=== PATIENT | female | born 1950 | race Caucasian/White ===

== ENCOUNTER → 2018-09-09 13:38 | Outpatient (CLI) | payer MEDICARE, BC ==
[2009-09-28 08:18] VITALS: BMI 23.0
--- NOTE | ~2018-09-09 | EC ---
PATIENT:SOLOMON MERINO DATE OF SERVICE: 09/09/18 SEX: F MEDICAL RECORD: [id number] DATE OF : 46 [facility] AGE OF PATIENT: 68 ADMISSION DATE: 09/09/18 REFERRING PHYSICIAN: INTERPRETING PHYSICIAN: PERCY TORIBIO MD ECHOCARDIOGRAM REPORT ECHO CHARGES 4 ECHO COMPLETE Date: 09/09/18 CLINICAL DIAGNOSIS: CAD ECHOCARDIOGRAPHIC MEASUREMENTS (adult normal given) AC root (d.<3.7cm) 2.8 cm LV Septum d (<1.2 cm> 1.3 cm Valve Excursion 1.0 cm LV Septum (systole) 1.5 cm Left Atria (s.<4.0cm> 3.5 cm LVPW d(<1.2cm) 1.4 cm RV (d.<2.3cm) 3.2 cm LVPW (sytole) 1.5 cm LV diastole(<5.6CM) 4.8 cm MV E-F(>70mm/sec) cm LV systole 2.7 cm LVOT Diameter 1.5 cm MV exc.(>10mm) 1.6 cm Est.ejection fraction (50-75%) % DOPPLER: LVIT cm/sec A 75.0 cm/sec E 94.0 cm/sec LA cm/sec RVSP 33 mmHg LVOT 97 cm/sec AOP1/2T 1 m/s Asc. Ao 196 cm/sec RVOT 78 cm/sec RA cm/sec PA 115 cm/sec AV Gradient Peak 15.34mmHg AV Mean 7.50 mmHg AV Area 1.7 cm MV Gradient Peak 6.77 mmHg MV Mean 1.94 mmHg MV Area cm COMMENTS: Stock Dealer: Naman NOEL Industrial Electrician Journeyman: 1 Dr. Toribio TAPE# PACS Pericardial Effusion N DATE OF SERVICE: 09/09/2018 PROCEDURE: Echocardiogram. FINDINGS: 1. Left ventricular chamber size is within normal limits. Left ventricular systolic function is normal. Overall ejection fraction estimated at 60%. 2. Left atrium, right atrium and right ventricular chamber sizes are within normal limits. 3. Valvular structures have normal structure and motion. ECHOCARDIOGRAM REPORT [id number] SOLOMON MERINO 4. Doppler interrogation reveals mild mitral regurgitation, mild tricuspid regurgitation, no other valvular insufficiency or stenosis. Pulmonary systolic pressure is normal estimated 33 mmHg. 5. No evidence of pericardial effusion or left ventricular thrombus. TRANSINT:[id number] Voice Confirmation ID: [id number] DOCUMENT ID: [id number] PERCY TORIBIO MD CC: [id number] DICTATION DATE: 09/10/18 1109 SERVICE COUNTER CASHIER: 09/10/18 1204 DEP CLI 09/09/18 [facility] [address] [id number]
== END | disposition home or self-care (01) ==
LOC: D.HCCARDIO 13:00
PROVIDERS: ATTEND Internal Medicine Interventional Cardiology
DX: I25.10 Atherosclerotic heart disease of native coronary artery without angina pectoris (principal)

== ENCOUNTER → 2018-09-20 14:14 | Outpatient (CLI) | payer MEDICARE, BC ==
[2009-09-28 08:18] VITALS: BMI 23.0
== END | disposition home or self-care (01) ==
LOC: D.CT 14:14
PROVIDERS: ATTEND Internal Medicine Interventional Cardiology
DX: I70.213 Atherosclerosis of native arteries of extremities with intermittent claudication, bilateral legs (principal); I73.9 Peripheral vascular disease, unspecified

== ENCOUNTER → 2020-08-26 09:13 | Outpatient (CLI) | payer MEDICARE ==
[2009-09-28 08:18] VITALS: BMI 23.0
== END | disposition home or self-care (01) ==
LOC: D.CT 09:13
PROVIDERS: ATTEND Radiology Diagnostic Radiology
DX: I70.202 Unspecified atherosclerosis of native arteries of extremities, left leg (principal)

== ENCOUNTER 2020-08-31 11:35 | Day surgery (SDC) | payer MEDICARE ==
--- NOTE | 2020-08-30 15:16 | NUR ---
APPOINTMENT CONFIRMED
[~2020-08-31] VITALS: Ht 160 cm; Wt 68.2 kg
--- NOTE | ~2020-08-31 | HEMODYNAMI ---
PATIENT:SOLOMON MERINO MEDICAL RECORD: [id number] : 46 LOCATION:[facility] ADMISSION DATE: 08/31/20 Generatedon:115:16 Patient name: SOLOMON MERINO Patient #: [id number] SSN: : 1950 Date of study: 08/31/2020 Page: Of Hemodynamic Procedure Report Patient Data Patient Demographics Procedure consent was obtained First Name: SOLOMON Gender: Female Last Name: WILBER : 1950 Patient #: [id number] Age: 70 year(s) Race: Unknown Additional ID: [id number] Contact details [address]: [address] [place] [address] [place] State: [place] City: [place] Zip code: [address] Past Medical History Allergies Allergen Reaction Date Comments Reported Codeine 08/31/2020 Bactrim 08/31/2020 Admission Admission Data Admission Date: 08/31/2020 Admission Time: 11:35 Procedure Procedure Types Cath Procedure Peripheral Cath Diagnostic Procedure Building Rental Manager Peripheral Procedures Abd/Extremity Extremities Bilat Lower Extremity Procedure Description Procedure Date Procedure Date: 08/31/2020 Procedure Start Time: 13:39 Procedure Staff Name Function Chucky Bellamy MD Performing Physician hSanta Devine RT Running Specialist Gretchen Marie RN Nurse Rickie Ann RT Scrub Procedure Data Cath Procedure Fluoroscopy Diagnostic fluoroscopy Total fluoroscopy Time: 8.3 time: 8.3 min min Diagnostic fluoroscopy Total fluoroscopy dose: dose: 1977 mGy 1977 mGy Contrast Material Contrast Material Type Amount (ml) Isovue 300 115 Diagnostic catheters Device Type Used For End Catheter Placement Merit ULTRA BOLUS FLUSH 5Fr 65CM catheter ([id number]) Angiodynamics SOS OMNI 2 NON B 5FR 65CM catheter ([id number]) Procedure Medications Medication Administration Route Dosage Heparin Flush Bag added to field 3 bags (1000units/500ml NS) Lidocaine 1% added to field 20 Fentanyl I.V. 50 mcg Versed I.V. 1 mg Heparin Bolus I.V. 4000 units Hemodynamics Rest Heart Rate: 58 (bpm) Pressure Samples Time Site Value (mmHg) Purpose Heart Use Rate(bpm) 14:13 AO 153/44(81) Snapshot 51 14:14 AO 119/44(72) Snapshot 50 14:14 AO 110/41(68) Snapshot 51 14:34 AO 142/42(77) Snapshot 50 14:35 AO 130/44(74) Snapshot 50 Snapshots Pre Cath Intra NCS Post Cath Vital Signs Time Heart Resp SPO2 etCO2 NIBP (mmHg) Rhythm Pain Sedation Rate (ipm) (%) (mmHg) Status Level (bpm) 13:15:30 80 11 95 33.8 163/68(118) NSR 0 (11) 10(A) , No pain 13:20:01 55 17 95 30.8 162/65(129) NSR 0 (11) 10(A) , No pain 13:25:00 58 21 92 47.4 Measuring NSR 0 (11) 10(A) , No pain 13:25:28 58 11 94 21 159/45(62) NSR 0 (11) 10(A) , No pain 13:29:59 54 14 95 39.9 165/56(124) NSR 0 (11) 10(A) , No pain 13:34:21 55 10 98 39.1 160/82(146) NSR 0 (11) 10(A) , No pain 13:38:47 57 16 98 32.4 156/74(116) NSR 0 (11) 10(A) , No pain 13:43:11 55 17 99 39.8 166/67(123) NSR 0 (11) 8(A) , No pain 13:47:40 52 13 99 36.9 143/59(107) NSR 0 (11) 8(A) , No pain 13:52:02 55 18 100 40.6 133/56(104) NSR 0 (11) 8(A) , No pain 13:57:01 50 26 99 41.4 Measuring NSR 0 (11) 8(A) , No pain 13:57:07 51 24 99 41.4 145/70(122) NSR 0 (11) 8(A) , No pain 14:01:27 50 25 99 42.1 143/59(109) NSR 0 (11) 8(A) , No pain 14:05:51 49 14 99 39.1 148/53(93) NSR 0 (11) 8(A) , No pain 14:10:15 51 15 100 39.8 138/58(108) NSR 0 (11) 8(A) , No pain 14:15:14 50 14 100 41.4 Measuring NSR 0 (11) 8(A) , No pain 14:15:25 50 14 100 42.1 147/59(112) NSR 0 (11) 8(A) , No pain 14:20:24 49 27 100 39.8 Measuring NSR 0 (11) 8(A) , No pain 14:20:38 49 24 100 39.8 148/58(112) NSR 0 (11) 8(A) , No pain 14:25:37 49 56 100 38.3 Measuring NSR 0 (11) 8(A) , No pain 14:26:06 50 27 100 40.6 145/58(102) NSR 0 (11) 8(A) , No pain 14:31:05 51 25 100 41.3 Measuring NSR 0 (11) 8(A) , No pain 14:31:17 50 18 100 40.6 144/59(109) NSR 0 (11) 8(A) , No pain 14:35:37 49 15 100 39.8 139/64(102) NSR 0 (11) 8(A) , No pain 14:40:01 50 16 100 36 131/49(99) NSR 0 (11) 8(A) , No pain 14:45:01 53 16 100 42.1 Measuring NSR 0 (11) 8(A) , No pain 14:45:25 49 15 100 41.3 127/54(103) NSR 0 (11) 8(A) , No pain 14:50:24 53 15 100 44.4 Measuring NSR 0 (11) 8(A) , No pain 14:50:40 53 16 100 40.6 156/68(120) NSR 0 (11) 8(A) , No pain 14:55:40 56 11 98 40.6 Measuring NSR 0 (11) 8(A) , No pain 14:55:46 58 11 98 44.4 153/67(116) NSR 0 (11) 8(A) , No pain 15:00:14 55 10 12.8 144/59(119) NSR 0 (11) 8(A) , No pain 15:04:14 No Cuff NSR 0 (11) 8(A) , No pain 15:08:13 0 No Cuff NSR 0 (11) 8(A) , No pain 15:12:13 0 No Cuff NSR 0 (11) 8(A) , No pain 15:16:13 0 No Cuff NSR 0 (11) 8(A) , No pain Medications Time Medication Route Dose Verified Delivered Reason Notes Effec tiveness by by 13:29:18 Heparin Flush added 3 Chucky Locke used for Bag to bags Josesito Bellamy procedure (1000units/500ml field MD VICENTE NS) 13:29:33 Lidocaine 1% added 20ml Chucky Locke used for to vial Josesito Bellamy procedure field MD VICENTE 13:41:13 Fentanyl I.V. 50 Chucky Godinez for mcg Josesito Marie sedation RN 13:41:25 Versed I.V. 1 mg Chucky Godinez for Josesito Marie sedation MD SOTO 13:47:44 Heparin Bolus I.V. 4000 Chucky Godinez used for units Josesito leone MD financial report service sales agent Log Time Note 12:46:07 Use device set IR Diagnostic 12:46:59 ACIST Syringe (69576) opened to sterile field. 12:47:00 ACIST Hand Control (71777) opened to sterile field. 12:47:03 ACIST Manifold (92455) opened to sterile field. 12:47:03 Bag Decanter (2002S) opened to sterile field. 12:47:04 Sterile Angiographic Pack opened to sterile field. 12:47:05 Tegaderm 4 x 4 (1626W) opened to sterile field. 12:47:06 Micropuncture VSI 4FR kit opened to sterile field. 12:47:07 BENTSON 145cm wire (P27800) opened to sterile field. 12:47:09 SHEATH 5FR [place] ([id number]) opened to sterile field. 12:47:10 TUBING Contrast Injection High Pressure (BWN025S) opened to sterile field. 12:47:12 DRUMMOND 260 wire (N75079) opened to sterile field. 12:47:26 - 13:07:58 Time tracking: Regular hours (M-F 7:00 - 5:00) 13:08:39 Plan of Care:Hemodynamics will remain stable., Cardiac rhythm will remain stable., Comfort level will be maintained., Respiratory function will remain adequate., Patient/ family verbilizes understanding of procedure., Procedure tolerated without complication., Recovers from procedure without complications.. 13:08:45 Patient received from Outpatients to IR Alert and oriented. Tansferred to table in Supine position. 13:08:51 Signed procedure consent form obtained from patient. 13:09:01 H&P Date Dictated: 08/31/2020 Within 30 days and on chart., H&P Addendum completed by physician on day of procedure. (MUST COMPLETE FOR ALL OUTPATIENTS). 13:09:03 Pre-procedure instructions explained to patient. 13:09:04 Pre-op teaching completed and patient verbalized understanding. 13:09:06 Family in waiting room. 13:09:12 Patient NPO since Midnight. 13:09:46 Patient allergic to Codeine 13:09:53 Patient allergic to Bactrim 13:11:50 Patient diabetic? No. 13:11:53 ----Pre-sedation anethsthesia assessment.---- 13:11:56 Previous problem with sedation/anesthesia? No ? 13:11:59 Snore? Yes 13:12:05 Sleep apnea? No 13:12:09 Deviated septum? No 13:12:12 Opens mouth fully? Yes 13:12:15 Sticks out tongue? Yes 13:12:37 Airway obstruction? Yes mitral valve regugitation 13:12:42 Dentures? No ? 13:13:33 Left groin area was prepped with chlora-prep and draped in sterile fashion 13:13:36 Alarms reviewed by Kavita Torres 13:14:04 Vital chart was started 13:16:52 ECG and BP/O2 sat monitors applied to patient. 13:16:53 Baseline sample Acquired. 13:16:54 Full Disclosure recording started 13:16:55 - 13:18:41 Pre procedure: left dorsailis pedis pulse 1+ Palpable, but thready & weak; easily obliterated 13:18:52 Pre procedure: left posterior tibial pulse Doppler 13:19:26 Pre procedure: right dorsailis pedis pulse 1+ Palpable, but thready & weak; easily obliterated 13:19:33 Pre procedure: right posterior tibial pulse Doppler 13:29:18 Heparin Flush Bag (1000units/500ml NS) 3 bags added to field was administered by Chucky Bellamy MD; used for procedure; Verbal order read back and verified. 13:29:33 Lidocaine 1% 20ml vial added to field was administered by Chucky reveles MD; used for procedure; Verbal order read back and verified. 13:38:50 Physician arrived 13:38:51 --------ALL STOP TIME OUT------ 13:38:52 Final Timeout: patient, procedure, and site verified with staff and physician. All members of the team are in agreement. 13:39:20 2) 60-89 Mildly reduced kidney function, and other findings (as for stage 1) point to kidney disease. 13:39:25 Fire Safety Assessment: A--An alcohol-based skin anteseptic being used preoperatively., C--Open oxygen or nitrous oxide is being used. 13:39:31 Procedure started. 13:39:36 Local anesthetic to left femerol artery with Lidocaine 1% by Chucky Bellamy MD.INITIAL ACCESS ONLY 13:39:42 Arterial access obtained using ultrasound guidance. 13:41:13 Fentanyl 50 mcg I.V. was administered by Gretchen Marie RN; for sedation; Verbal order read back and verified. 13:41:25 Versed 1 mg I.V. was administered by Gretchen Marie RN; for sedation; Verbal order read back and verified. 13:46:59 A [employer] ULTRA BOLUS FLUSH 5Fr 65CM catheter ([id number]) was advanced over the wire and used for . 13:47:44 Heparin Bolus 4000 units I.V. was administered by Gretchen Marie RN; used for procedure; Verbal order read back and verified. 13:56:45 Place stent Inflation Number: 1 A HERCULINK ELITE 6 X 15 X 80 stent ([id number]) was prepped and advanced across the Undefined1 . The stent was deployed at 0 ARMAAN for 0:00 (min:sec) . 13:57:31 A [facility] OMNI 2 NON B 5FR 65CM catheter ([id number]) was advanced over the wire and used for . 13:57:33 CHOICE PT Extra Support J 300cm guide wire ([id number]) opened to steril e field. 13:57:34 INFLATOR BasixTOUCH (KR4518) opened to sterile field. 14:13:27 Zero performed for pressure channel P1 14:21:13 Inflate balloon Inflation number: 1 A SHOCKWAVE BALLOON 6 X 60 ([id number]) was prepped and advanced across the Undefined2 , then inflated to 0 ARMAAN for 0:00 (min:sec) . 14:42:23 Place stent Inflation Number: 1 A Visipro 7 x 27 x 135 Stent ([id number]) was prepped and advanced across the Undefined3 . The stent was deployed at 0 ARMAAN for 0:00 (min:sec) . 14:52:19 Procedure ended.(Physican Out) 14:52:46 Fluoroscopy time 08.30 minutes. 14:52:52 Fluoroscopy dose: 1976 mGy 14:52:52 Flurop Dose total: 1976 14:53:15 Contrast amount:Isovue 300 115ml. 14:53:19 Procedure and supply charges have been captured, reviewed, submitted an d are correct. 15:16:28 Report given to Outpatients. 15:16:50 Vital chart was stopped Intervention Summary Intervention Notes Time ActionType Lesion and Equipment Used Action# Pressure Duration Attributes 13:56:45 Place stent Undefined1 HERCULINK ELITE 6 1 0 00:00 X 15 X 80 stent ([id number]) 14:21:13 Inflate Undefined2 SHOCKWAVE BALLOON 1 0 00:00 balloon 6 X 60 ([id number]) 14:42:23 Place stent Undefined3 Visipro 7 x 27 x 1 0 00:00 135 Stent ([id number]) Device Usage Item Name Manufacture Quantity Catalog Number Hospital Part Cur rent Minimal Lot# / Charge Number Stock Stock Serial# Code ACIST Syringe Acist Medical 1 56395 488885 [id number] 984 633 20 (20714) Systems Inc ACIST Hand [employer]ist Medical 1 43703 097697 160905 985 065 5 Control (97931) Systems Inc ACIST Manifold [employer]ist Medical 1 95854 039626 122891 985 080 5 (58343) Systems Inc Bag Decanter Microtek 1 2002S 199699 46436 982 776 5 (2001S) Medical Inc. Sterile Cardinal 1 [id number] 859290 997 491 5 Angiographic Pack Health Tegaderm 4 x 4 3M 1 1626W 734810 228812 988 846 5 (1626W) Micropuncture VSI VSI VASCULAR 1 7266V 484627 999 036 5 4FR kit SOLUTIONS BENTSON 145cm [employer] 1 D84945 939409 999 483 5 wire (L40431) SHEATH 5FR [employer] 1 HPD445 612179 755984 992 991 5 [place] (OQK787) TUBING Contrast [facility] 1 [id number] 509099 846541 999 226 5 Injection High Pressure ([id number]) DRUMMOND 260 wire [facility] 1 R02606 886888 232961 999 289 5 (H58983) Merit ULTRA BOLUS [facility] 1 [id number] 012741 999 749 5 FLUSH 5Fr 65CM catheter ([id number]) HERCULINK ELITE 6 [place] 1 [id number] 289434 999 996 5 [id number] X 15 X 80 stent Vascular ([id number]) Angiodynamics SOS Angiodynamics 1 [id number] 882590 83193 999 881 5 OMNI 2 NON B 5FR 65CM catheter ([id number]) CHOICE PT Extra [place] 1 [id number] 998 668 5 Support J 300cm Scientific guide wire ([id number]) INFLATOR [employer] Medical 1 LK1239 792901 796458 999 495 5 BasixTOUCH (FU1584) SHOCKWAVE BALLOON SHOCKWAVE 1 [id number] 591231 6649153 999 988 1 [id number] 6 X 60 MEDICAL ([id number]) Visipro 7 x 27 x Medtronic 1 [id number] 211865 019257 999 993 5 [id number] Stent ([id number]) Signature Audit [place] Stage Time Signature Unsigned Intra-Procedure 08/31/2020 Shanta Devine 3:16:46 PM RT(R) [id number] [place] [address]
[2020-08-31 11:55] LABS: BASOPHILS 0.3 % (0-2); EOSINOPHILS 0.7 % (0-7); HEMATOCRIT 39.1 % (36.0-48.0); HEMOGLOBIN 12.9 g/dL (12-16); IMMATURE GRANULOCYTES 0.1 % (0-5); LYMPHOCYTE ABS# 1.71 10x3/uL (1.18-3.74); LYMPHOCYTES 17.7 % (15-50); MCH 29.1 pg (26.0-34.0); MCV 88.1 fL (80.0-100.0); NEUTROPHIL ABS# 7.27 10x3/uL (1.56-6.13); NEUTROPHILS 75.2 % (40-80); PLATELET COUNT 353 10x3/uL (130-400); RBC 4.44 10x6/uL (4.00-5.40); RDW 13.9 % (11.5-14.5); WBC 9.7 10x3/uL (4.8-10.8)
[2020-08-31 11:58] LABS: CALC OSMOLALITY 276 mosm/kg (275-300); CALCIUM 9.8 mg/dL (8.5-10.1); CARBON DIOXIDE 32.9 mmol/L (21.0-32.0); CHLORIDE - SERUM 98 mmol/L (98-107); CREATININE - SERUM 0.7 mg/dL (0.6-1.3); GLUCOSE 124 mg/dL (74-106); POTASSIUM - SERUM 3.8 mmol/L (3.5-5.1); SODIUM 138 mmol/L (136-145); UREA NITROGEN 12 mg/dL (7-18); eGFR NON AFRICAN AMERICAN 87 mL/min (90-120)
[2020-08-31 12:01] LABS: APTT 29.8 SECONDS (22.8-39.4); INR 1.01 (0.85-1.17); PROTIME 12.3 SECONDS (11.6-15.0)
[2020-08-31] MEDS ORDERED: ESTRACE 0.5 MG0.5 MG PO (12:24)
[2020-08-31] MEDS ORDERED: ARMOUR THYROID30 MG PO (12:24)
[2020-08-31] MEDS ORDERED: DILTIAZEM 24HR240 M4 PO (12:25)
[2020-08-31] MEDS ORDERED: EDARBYCLOR 40-1 EAC1 PO (12:25)
[2020-08-31] MEDS ORDERED: OMEPRAZOLE20 M1 PO (12:26)
[2020-08-31] MEDS ORDERED: FOLIC ACID1 MG PO (12:27)
[2020-08-31] MEDS ORDERED: ZANAFLEX2 M1 PO (12:27)
[2020-08-31] MEDS ORDERED: CITRUCEL500 MG (12:28)
[2020-08-31] MEDS ORDERED: MULTI-DAY VITAM1 TAB (12:29)
[2020-08-31] MEDS ORDERED: VITAMIN D21250 MC1 PO (12:29)
[2020-08-31] MEDS ORDERED: BAYER CHEWABLE81 MG PO (12:29)
[2020-08-31] MEDS ORDERED: VITAMIN C WIT1000 MG PO (12:30)
[2020-08-31] MEDS ORDERED: OS-CAL500 MG PO (12:31)
[2020-08-31 12:41] VITALS: BP 138/55; Ht 160 cm; Wt 68.2 kg
--- NOTE | 2020-08-31 16:27 | NUR ---
1530 - PATIENT GIVEN INSTRUCTIONS TO CRANE CHASER PLAVIX PRESCRIPTION FROM [facility] AND TO START TAKING 75 MG PO AT 6PM AT NIGHT. THE PATIENT WAS INSTRUCTED TO CONTINUE TO TAKE PROTONIX AT 6AM. PATIENT GIVEN FOLLOW UP DATE OF August AT 130PM. PATIENT AND DAUGHTER VERBALIZED UNDERSTANDING
--- NOTE | 2020-08-31 18:55 | NUR ---
DISCHARGE INSTRUCTIONS REVIEWED WITH PATIENT AND DAUGHTER. THEN PATIENT SITS ON SIDE OF BED AND STANDS AND AMBULATES TO BATHROOM. NO DIZZINESS OR WEAKNESS. PATIENT VOIDS LARGE AMOUNT IN TOILET. LEFT GROIN ASSESSMENT UNCHANGED, NO BLEEDING OR SWELLING. LEFT HAND PIV DC'D WITH TIP INTACT. PATIENT DRESSES IN PERSONAL CLOTHING. 1907 DISCHARGED HOME VIA WHEELCHAIR TO PRIVATE VEHICLE WITH DAUGHTER
--- NOTE | 2020-09-01 15:28 | NUR ---
FOR PT CASE FROM 08/31/20 ARTERIOGRAM: MISSED CHARTING 0.5MG VERSED IV AND 25MCG FENTANYL IV IN [facility]. MEDICATION WAS RECORDED ON IR MEDICATION PROCEDURE SHEET, JUST NOT IN [facility].
== END 2020-08-31 19:08 | disposition home or self-care (01) ==
LOC: D.SP 11:35 → D.RAD 13:00 → D.SP 19:08
PROVIDERS: General Practice; ATTEND Radiology Diagnostic Radiology
DX: R93.1 Abnormal findings on diagnostic imaging of heart and coronary circulation (principal); I70.1 Atherosclerosis of renal artery; I70.212 Atherosclerosis of native arteries of extremities with intermittent claudication, left leg
CPT/HCPCS: 37236; 36251; C9765

== ENCOUNTER → 2020-10-11 08:21 | Day surgery (SDC) | payer MEDICARE ==
[~2020-10-11] VITALS: Ht 160 cm; Wt 68.2 kg
--- NOTE | ~2020-10-11 | HEMODYNAMI ---
PATIENT:SOLOMON MERINO MEDICAL RECORD: [id number] : 46 LOCATION:[facility] ADMISSION DATE: 10/11/20 Generatedon:111:56 Patient name: SOLOMON MERINO Patient #: [id number] SSN: : 1950 Date of study: 10/11/2020 Page: Of Hemodynamic Procedure Report Patient Data Patient Demographics Procedure consent was obtained First Name: SOLOMON Gender: Female Last Name: WILBER : 1950 Patient #: [id number] Age: 70 year(s) Race: Unknown Additional ID: [id number] Contact details [address]: [address] [place] [address] [place] State: [place] City: [place] Zip code: [address] Past Medical History Allergies Allergen Reaction Date Comments Reported Codeine 08/31/2020 Bactrim 08/31/2020 Codeine 10/11/2020 Penicillins 10/11/2020 Sulfa drugs 10/11/2020 Bactrim 10/11/2020 Admission Admission Data Admission Date: 10/11/2020 Admission Time: 8:21 Procedure Procedure Types Cath Procedure Peripheral Cath Diagnostic Procedure Abd/Extremity Extremities Left Lower Ext Arterio Procedure Description Procedure Date Procedure Date: 10/11/2020 Procedure Start Time: 11:05 Procedure Staff Name Function Chucky Bellamy MD Performing Physician Shanta Devine RT Patient Scheduler Kena Ybarra RN Nurse Rickie Ann RT Scrub Procedure Data Cath Procedure Fluoroscopy Diagnostic fluoroscopy Total fluoroscopy Time: 0 time: 0 min min Diagnostic fluoroscopy Total fluoroscopy dose: 803 dose: 803 mGy mGy Contrast Material Contrast Material Type Amount (ml) Isovue 300 50 Procedure Medications Medication Administration Route Dosage Heparin Flush Bag added to field 2 bags (1000units/500ml NS) Lidocaine 1% added to field 20 Benadryl I.V. 50 mg Fentanyl I.V. 50 mcg Versed I.V. 1 mg Heparin Bolus I.V. 4000 units Fentanyl I.V. 50 mcg Versed I.V. 1 mg Fentanyl I.V. 100 mcg Hydralizine I.V. 10 mg Hemodynamics Rest Heart Rate: 62 (bpm) Snapshots Pre Cath Intra NCS Post Cath Vital Signs Time Heart Resp SPO2 etCO2 NIBP (mmHg) Rhythm Pain Sedation Rate (ipm) (%) (mmHg) Status Level (bpm) 10:43:41 60 18 100 41.1 169/70(122) NSR 0 (11) 10(A) , No pain 10:48:40 63 13 100 47.1 Auto NIBP NSR 0 (11) 10(A) off , No pain 10:53:39 59 12 94 49.3 Auto NIBP NSR 0 (11) 10(A) off , No pain 10:56:58 62 14 100 40.4 171/78(129) NSR 0 (11) 10(A) , No pain 11:01:57 60 12 100 42.6 Auto NIBP NSR 0 (11) 10(A) off , No pain 11:05:09 61 32 100 41.9 163/72(135) NSR 0 (11) 8(A) , No pain 11:06:21 60 13 100 43.3 Auto NIBP NSR 0 (11) 8(A) off , No pain 11:08:16 60 20 100 43.3 171/86(144) NSR 0 (11) 8(A) , No pain 11:11:00 60 12 100 45.5 206/87(160) NSR 0 (11) 8(A) , No pain 11:14:16 64 16 100 47.8 183/82(147) NSR 0 (11) 8(A) , No pain 11:19:15 61 11 100 47.1 Auto NIBP NSR 0 (11) 8(A) off , No pain 11:21:12 60 25 100 45.6 175/71(128) NSR 0 (11) 8(A) , No pain 11:26:11 56 29 100 41.1 Auto NIBP NSR 0 (11) 8(A) off , No pain 11:28:22 59 20 100 45.6 178/74(134) NSR 0 (11) 8(A) , No pain 11:33:21 63 13 100 41.9 Auto NIBP NSR 0 (11) 8(A) off , No pain 11:36:03 64 14 100 40.4 174/91(126) NSR 0 (11) 8(A) , No pain 11:41:02 72 16 100 46.3 Auto NIBP NSR 0 (11) 8(A) off , No pain 11:42:38 70 17 95 35.1 211/99(167) NSR 0 (11) 8(A) , No pain 11:46:48 68 7 96 14.2 187/87(153) NSR 0 (11) 8(A) , No pain 11:50:05 79 8 96 50.8 133/80(117) NSR 0 (11) 8(A) , No pain 11:53:19 78 8 98 35.9 141/94(128) NSR 0 (11) 8(A) , No pain Medications Time Medication Route Dose Verified Delivered Reason Notes Effec tiveness by by 10:40:49 Heparin Flush added 2 Chucky Locke used for Bag to bags Josesito Bellamy procedure (1000units/500ml field MD VICENTE NS) 10:41:18 Lidocaine 1% added 20ml Chucky Locke used for to vial Josesito Bellamy procedure field MD VICENTE 10:45:59 Benadryl I.V. 50 mg Chucky Ybarra RN, MD 11:04:05 Fentanyl I.V. 50 Chucky Escudero for mcg Josesito Ybarra RN sedation 11:04:15 Versed I.V. 1 mg Chucky Escudero for Josesito Ybarra RN sedation 11:13:48 Heparin Bolus I.V. 4000 Chucky Escudero units Josesito Ybarra RN, MD 11:34:16 Versed I.V. 1 mg Chucky Escudero for Josesito Ybarra RN sedation 11:34:16 Fentanyl I.V. 50 Chucky Escudero for mcg Josesito Ybarra RN sedation 11:38:58 Fentanyl I.V. 100 Chucky Escudero Per [facility] [place]ito Ybarra RN physician 11:43:29 Hydralizine I.V. 10 mg Chucky Escudero Per Josesito maguire MD Procedure Log Time Note 10:25:30 Use device set IR Diagnostic 10:26:43 Bag Decanter (2002S) opened to sterile field. 10:26:44 Sterile Angiographic Pack opened to sterile field. 10:26:45 Tegaderm 4 x 4 ([id number]) opened to sterile field. 10:26:46 Micropuncture VSI 4FR kit opened to sterile field. 10:26:47 BENTSON 145cm wire ([id number]) opened to sterile field. 10:26:48 CXI SUPPORT .035 135 CM STR catheter ([id number]) opened to sterile field. 10:26:49 ROADRUNNER .035 260 glide wire ([id number]) opened to sterile field. 10:26:50 CHOICE PT Extra Support J 300cm guide wire ([id number]) opened to steril e field. 10:29:32 Time tracking: Regular hours (M-F 7:00 - 5:00) 10:29:46 Plan of Care:Hemodynamics will remain stable., Cardiac rhythm will remain stable., Comfort level will be maintained., Respiratory function will remain adequate., Patient/ family verbilizes understanding of procedure., Procedure tolerated without complication., Recovers from procedure without complications.. 10:29:52 Patient received from Outpatients to IR Alert and oriented. Tansferred to table in Supine position. 10:30:02 Signed procedure consent form obtained from patient. 10:30:10 H&P Date Dictated: 10/11/2020 Within 30 days and on chart., H&P Addendum completed by physician on day of procedure. (MUST COMPLETE FOR ALL OUTPATIENTS). 10:30:12 Pre-procedure instructions explained to patient. 10:30:13 Pre-op teaching completed and patient verbalized understanding. 10:30:16 Family in waiting room. 10:30:20 Patient NPO since Midnight. 10:30:29 Patient allergic to Codeine 10:30:35 Patient allergic to Penicillins 10:30:48 Patient allergic to Sulfa drugs 10:30:52 Patient allergic to Bactrim 10:30:58 Is the patient allergic to Iodine/contrast media? No. 10:31:39 Is patient on blood thinner?Yes 10:32:09 Patient diabetic? No. 10:32:12 - 10:32:13 ----Pre-sedation anethsthesia assessment.---- 10:32:16 Previous problem with sedation/anesthesia? No ? 10:32:20 Snore? No 10:32:24 Sleep apnea? No 10:32:27 Deviated septum? No 10:32:29 Opens mouth fully? Yes 10:32:30 Sticks out tongue? Yes 10:32:34 Airway obstruction? No ? 10:32:38 Dentures? No ? 10:32:40 - 10:32:47 Pre procedure: right dorsailis pedis pulse Doppler 10:32:51 Pre procedure: left dorsailis pedis pulse Doppler 10:32:57 Pre procedure: right posterior tibial pulse Doppler 10:33:01 Pre procedure: left posterior tibial pulse Doppler 10:33:51 Right groin area was prepped with chlora-prep and draped in sterile fashion 10:33:53 Alarms reviewed by Kavita Torres 10:34:03 2) 60-89 Mildly reduced kidney function, and other findings (as for stage 1) point to kidney disease. 10:34:09 Fire Safety Assessment: A--An alcohol-based skin anteseptic being used preoperatively., C--Open oxygen or nitrous oxide is being used. 10:35:11 - 10:40:49 Heparin Flush Bag (1000units/500ml NS) 2 bags added to field was administered by Chucky Bellamy MD; used for procedure; Verbal order read back and verified. 10:41:18 Lidocaine 1% 20ml vial added to field was administered by Chucky reveles MD; used for procedure; Verbal order read back and verified. 10:42:27 Vital chart was started 10:44:46 ECG and BP/O2 sat monitors applied to patient. 10:44:49 Baseline sample Acquired. 10:44:52 Full Disclosure recording started 10:44:57 - 10:45:59 Benadryl 50 mg I.V. was administered by Kena Ybarra RN; ; Verbal orde r read back and verified. 10:57:36 SHEATH 6FR Brite Tip 35cm ([id number]) opened to sterile field. 11:04:05 Fentanyl 50 mcg I.V. was administered by Kena Ybarra RN; for sedation ; Verbal order read back and verified. 11:04:15 Versed 1 mg I.V. was administered by Kena Ybarra RN; for sedation; Verbal order read back and verified. 11:04:35 Physician arrived 11:04:36 --------ALL STOP TIME OUT------ 11:04:37 Final Timeout: patient, procedure, and site verified with staff and physician. All members of the team are in agreement. 11:05:27 Procedure started. 11:05:33 Local anesthetic to right femoral artery with Lidocaine 1% by Chucky Bellamy MD.INITIAL ACCESS ONLY 11:06:06 Vital chart was stopped 11:06:11 Vital chart was started 11:06:20 Arterial access obtained using ultrasound guidance. 11:12:20 DOUBLE ENDED GUIEDWIRE DOC 145CM ([id number]) opened to sterile field. 11:13:48 Heparin Bolus 4000 units I.V. was administered by Kena Ybarra RN; ; Verbal order read back and verified. 11:18:00 Inflate balloon Inflation number: 1 A SHOCKWAVE BALLOON 6 X 60 ([id number]) was prepped and advanced across the Undefined1 , then inflated . 11:34:16 Fentanyl 50 mcg I.V. was administered by Kena Tate RN; for sedation ; Verbal order read back and verified. 11:34:16 Versed 1 mg I.V. was administered by Kena Ybarra RN; for sedation; Verbal order read back and verified. 11:34:33 Place stent Inflation Number: 2 A Visipro 7 x 37 x 135 Stent ([id number]) was prepped and advanced across the Undefined1 . The stent was deployed at 0 ARMAAN for 0:00 (min:sec) . 11:36:16 PERCLOSE Proglide 6FR ( [id number]) opened to sterile field. 11:38:58 Fentanyl 100 mcg I.V. was administered by Kena Ybarra RN; Per physician; Verbal order read back and verified. 11:39:04 Contrast amount:Isovue 300 50ml. 11:39:15 Fluoroscopy time 00.00 minutes. 11:39:22 Fluoroscopy dose: 803 mGy 11:39:22 Flurop Dose total: 803 11:41:06 Procedure ended.(Physican Out) 11:43:29 Hydralizine 10 mg I.V. was administered by Kena Ybarra RN; Per physician; Verbal order read back and verified. 11:56:00 Report given to Outpatients. 11:56:25 Vital chart was stopped Intervention Summary Intervention Notes Time ActionType Lesion and Equipment Used Action# Pressure Duration Attributes 11:18:00 Inflate Undefined1 SHOCKWAVE BALLOON 1 0 00:00 balloon 6 X 60 ([id number]) 11:34:33 Place stent Undefined1 Visipro 7 x 37 x 2 0 00:00 135 Stent ([id number]) Device Usage Item Name Manufacture Quantity Catalog Number Hospital Part Curr ent Minimal Lot# / Charge Number Stock Stock Serial# Code Bag Decanter Microtek 1 [id number] 17533 9826 00 5 () [employer] Sterile Cardinal 1 [id number] 9139 55 5 Angiographic Pack Health Tegaderm 4 x 4 3M 1 1626W 815701 235757 5798 90 5 (1626W) Micropuncture VSI VSI VASCULAR 1 [id number] 654533 5860 17 5 4FR kit SOLUTIONS BENTSON 145cm eROI 1 [id number] 114995 1495 74 5 wire (Y34873) CXI SUPPORT .035 [employer] 1 Q38674 872690 792007 5880 91 5 135 CM STR catheter (Q05734) ROADRUNNER .035 [employer] 1 [id number] 889218 880541 3173 68 5 260 glide wire (O17164) CHOICE PT Extra Reading 1 [id number] 594691 192648 5547 59 5 Support J 300cm Scientific guide wire ([id number]) SHEATH 6FR Brite Cardinal 1 [id number] 979537 205153 4224 82 1 Tip 35cm Health (891384F) DOUBLE ENDED [employer] 1 T83700 861106 4151 49 1 GUIEDWIRE DOC 145CM ([id number]) SHOCKWAVE BALLOON SHOCKWAVE 1 [id number] 983432 5740560 9999 86 1 6 X 60 MEDICAL ([id number]) Visipro 7 x 37 x Medtronic 1 [id number] 067075 291574 1918 95 5 [id number] 135 Stent ([id number]) PERCLOSE Proglide Issa 1 37265-436 471616 015658 6897 50 5 6FR ( [id number]) Vascular Signature Audit [place] Stage Time Signature Unsigned Intra-Procedure 10/11/2020 Shanta Devine 11:56:22 AM RT(R) [place] [id number] [place] [address]
[~2020-10-11 08:21] MED LIST: ARMOUR THYROID30 MG PO; BAYER CHEWABLE81 MG PO; CITRUCEL500 MG; DILTIAZEM 24HR240 M4 PO; EDARBYCLOR 40-1 EAC1 PO; ESTRACE 0.5 MG0.5 MG PO; FOLIC ACID1 MG PO; MULTI-DAY VITAM1 TAB; OMEPRAZOLE20 M1 PO; OS-CAL500 MG PO; PLAVIX75 MG PO; VITAMIN C WIT1000 MG PO; VITAMIN D21250 MC1 PO; ZANAFLEX2 M1 PO
[2020-10-11 08:45] LABS: EOSINOPHILS 2.5 % (0-7); HEMATOCRIT 37.7 % (36.0-48.0); HEMOGLOBIN 12.3 g/dL (12-16); LYMPHOCYTES 16.9 % (15-50); MCH 28.3 pg (26.0-34.0); MCHC 32.7 g/dL (31.0-37.0); MCV 86.6 fL (80.0-100.0); MEAN PLATELET VOLUME 6.6 fL (7.4-10.4); MONOCYTES 10.2 % (2-11); NEUTROPHILS 69.4 % (40-80); PLATELET COUNT 324 10x3/uL (130-400); RBC 4.36 10x6/uL (4.00-5.40)
[2020-10-11 08:55] LABS: CALC OSMOLALITY 283 mosm/kg (275-300); CALCIUM 9.2 mg/dL (8.5-10.1); CARBON DIOXIDE 33.9 mmol/L (21.0-32.0); CHLORIDE - SERUM 103 mmol/L (98-107); CREATININE - SERUM 0.7 mg/dL (0.6-1.3); GLUCOSE 116 mg/dL (74-106); POTASSIUM - SERUM 4.3 mmol/L (3.5-5.1); SODIUM 141 mmol/L (136-145); UREA NITROGEN 19 mg/dL (7-18); eGFR NON AFRICAN AMERICAN 87 mL/min (90-120)
[2020-10-11 09:06] LABS: APTT 30.4 SECONDS (22.8-39.4); INR 1.01 (0.85-1.17); PROTIME 12.3 SECONDS (11.6-15.0)
[2020-10-11 09:12] VITALS: BP 155/70; Ht 160 cm; Wt 68.2 kg
--- NOTE | 2020-10-11 18:59 | NUR ---
UNEVENTFUL RECOVERY. PT SUPINE WITH LEGS STRAIGHT AFTER ARTERIOGRAM. R GROIN SITE HAS REMAINED SOFT AND WITHOUT S/S OF HEMATOMA. PEDAL PULSES HAVE BEEN PALPABLE BILATERALLY WITH FEET PINK AND WARN. IV D/C'D WITH CANNULA INTACT, PRESSURE HELD AND DRSG PLACED. DISCHARGE INSTRUCTIONS GIVEN AND PT VERBALIZED AN UNDERSTANDING
== END | disposition home or self-care (01) ==
LOC: D.RAD 08:21
PROVIDERS: ATTEND Radiology Diagnostic Radiology
DX: I70.211 Atherosclerosis of native arteries of extremities with intermittent claudication, right leg (principal); I10 Essential (primary) hypertension; E03.9 Hypothyroidism, unspecified